=== PATIENT | male | born 1995 | race Caucasian/White ===

== ENCOUNTER 2017-07-03 18:30 | Inpatient (IN) | payer MEDICAID, OTHER ==
[~2017-07-03] VITALS: Ht 167.6 cm; Wt 91.3 kg
[~2017-07-03 18:30] MED LIST: CLOZ100 PO; CLOZ25TA4 PO; LEVO25TA9 PO; TRAZ-147 PO
[2017-07-03 19:09] LABS: BASOPHILS # (AUTO) 0.02 K/uL (0.00-0.20); BASOPHILS % (AUTO) 0.3 % (0.0-2.0); EOSINOPHILS % (AUTO) 0.05 % (1.0-6.0); HEMATOCRIT 47.7 % (41-53); HEMOGLOBIN 15.9 g/dL (13.5-17.5); LYMPHOCYTES # (AUTO) 1.7 K/uL (1.0-4.8); MEAN CORPUSCULAR HEMOGLOBIN 28.3 pg (26.0-34.0); MEAN CORPUSCULAR HGB CONC 33.3 G/dL (31.0-37.0); MEAN CORPUSCULAR VOLUME 85 fL (80-100); MONOCYTES # (AUTO) 0.5 K/uL (0.1-1.0); MONOCYTES % (AUTO) 6.9 % (2.0-9.0); NEUTROPHILS # (AUTO) 5.2 K/uL (1.8-7.7); NEUTROPHILS % (AUTO) 69.7 % (40.0-70.0); PLATELET COUNT (AUTO) 182 K/uL (150-450); RED BLOOD CELL COUNT(AUTO) 5.62 MIL/uL (4.50-5.90); RED CELL DISTRIBUTION WIDTH 13.1 % (11.5-14.5); WHITE BLOOD COUNT (AUTO) 7.4 K/uL (4.5-11.0)
[2017-07-03] MEDS ORDERED: PERTUSS(ACELL),DIPH,TET VAC/PF 0.5 ML VIAL IM ONE (19:15)
[2017-07-03] MEDS ORDERED: BACITRACIN 0.9 GM PACKET OINTMENT TP ONE (19:15)
[2017-07-03 19:25] LABS: ANION GAP 11 mmol/L (8-16); CALCIUM, TOTAL 9.3 mg/dL (8.8-10.5); CARBON DIOXIDE 26 mmol/L (22-29); CHLORIDE 104 mmol/L (98-107); CREATININE 0.94 mg/dL (0.60-1.30); GLOMERULAR FILTR. RATE CALC > 60 mL/min (>60); POTASSIUM 3.8 mmol/L (3.5-5.1); SODIUM SERUM 141 mmol/L (136-145); UREA NITROGEN, BLOOD 10 mg/dL (7-18)
[2017-07-03 19:31] LABS: ALANINE AMINOTRANSFERASE 37 U/L (12-78); ALBUMIN 4.5 g/dL (3.4-5.0); ASPARTATE AMINOTRANSFERASE 13 U/L (15-37); BILIRUBIN,TOTAL 0.3 mg/dL (0.1-1.0); TOTAL PROTEIN, SERUM 8.3 g/dL (6.4-8.2)
[2017-07-03] MEDS ORDERED: OLANZapine 5 MG RAPDIS TABLET PO PRN (20:00)
[2017-07-03] MEDS ORDERED: ZOLPIDEM TARTRATE 10 MG TABLET PO PRN (20:00)
[2017-07-03] MEDS ORDERED: HALOPERIDOL 5 MG TABLET PO ONE (20:00)
[2017-07-03] MEDS ORDERED: TraZODone HCL 50 MG TABLET PO ONE (20:00)
[2017-07-03] MEDS ORDERED: LORazepam 2 MG TABLET PO PRN (20:00)
[2017-07-03] MEDS ORDERED: LORazepam 2 MG TABLET PO ONE (20:00)
[2017-07-03] MEDS ORDERED: CloNIDine HCL 0.1 MG TABLET PO ONE (21:30)
[2017-07-03 21:36] VITALS: BP 127/105
[2017-07-03] MEDS ORDERED: INFLUENZA VIRUS VACCINE QVS 2017-18 (3YR+)/PF 60 MCG/0.5 ML SYRINGE IM ONE (22:15)
[2017-07-03 22:27] VITALS: BP 128/82
[2017-07-04 01:24] VITALS: BP 100/58
[2017-07-04] MEDS: LEVOTHYROXINE SODIUM 25 MCG TABLET PO SCH (07:00)
[2017-07-04 08:41] VITALS: BP 132/88
[2017-07-04] MEDS ORDERED: HydrOXYzine PAMOATE 50 MG CAPSULE PO PRN (08:45)
[2017-07-04] MEDS ORDERED: ACETAMINOPHEN 325 MG TABLET PO PRN (08:45)
[2017-07-04] MEDS ORDERED: MAGNESIUM HYDROXIDE SUSPENSION 30 ML UDCUP PO PRN (08:45)
[2017-07-04] MEDS ORDERED: LOPERAMIDE HCL 2 MG CAPSULE PO PRN (08:45)
[2017-07-04] MEDS ORDERED: TUBERCULIN, PURIFIED PROTEIN DERIVATIVE 5 TU/0.1 ML SYG ID ONE (08:45)
[2017-07-04] MEDS ORDERED: MAG HYDROX/AL HYDROX/SIMETH ES 30 ML SUSPENSION UDCUP PO PRN (08:45)
[2017-07-04] MEDS ORDERED: GuaiFENesin/D-METHORPHAN [SUGAR-FREE] 200-20MG/10 ML SYRUP UDCUP PO PRN (08:45)
[2017-07-04] MEDS ORDERED: PROMETHAZINE HCL 25 MG TABLET PO PRN (08:45)
[2017-07-04] MEDS: CloNIDine HCL 0.1 MG TABLET PO SCH ×2 (08:55→16:31)
[2017-07-04] MEDS: FOLIC ACID 1 MG TABLET PO SCH (08:55)
[2017-07-04] MEDS: THIAMINE HCL 100 MG TABLET PO SCH ×2 (08:55→16:31)
[2017-07-04] MEDS: MULTIVITAMINS WITH MINERALS, THERAPEUTIC TABLET PO SCH (08:55)
[2017-07-04 09:04] LABS: CHOL/HDL RATIO 5.2 (4.2-7.3)
[2017-07-04] MEDS ORDERED: LORazepam 2 MG TABLET PO PRN (12:00)
[2017-07-04 16:15] VITALS: BP 144/93
[2017-07-04] MEDS ORDERED: CloZAPine 100 MG TABLET PO SCH (21:00)
[2017-07-04] MEDS: TraZODone HCL 100 MG TABLET PO SCH (21:21)
[2017-07-05 00:43] VITALS: BP 121/79
[2017-07-05] MEDS: LEVOTHYROXINE SODIUM 25 MCG TABLET PO SCH (06:36)
[2017-07-05 09:00] VITALS: BP 118/72
[2017-07-05] MEDS: CloNIDine HCL 0.1 MG TABLET PO SCH ×2 (09:01→16:30)
[2017-07-05] MEDS: FOLIC ACID 1 MG TABLET PO SCH (09:01)
[2017-07-05] MEDS: THIAMINE HCL 100 MG TABLET PO SCH ×2 (09:01→16:30)
[2017-07-05] MEDS: FLUoxetine HCL 20 MG CAPSULE PO SCH (09:01)
[2017-07-05] MEDS: MULTIVITAMINS WITH MINERALS, THERAPEUTIC TABLET PO SCH (09:01)
[2017-07-05 16:20] VITALS: BP 119/68
[2017-07-05] MEDS: TraZODone HCL 100 MG TABLET PO SCH (20:07)
[2017-07-05] MEDS: CloZAPine 100 MG TABLET PO SCH (20:07)
[2017-07-06 06:04] VITALS: BP 116/76
[2017-07-06] MEDS: LEVOTHYROXINE SODIUM 25 MCG TABLET PO SCH (06:37)
[2017-07-06 08:48] VITALS: BP 121/73
[2017-07-06] MEDS: FLUoxetine HCL 20 MG CAPSULE PO SCH (08:48)
[2017-07-06] MEDS: MULTIVITAMINS WITH MINERALS, THERAPEUTIC TABLET PO SCH (08:48)
[2017-07-06] MEDS: FOLIC ACID 1 MG TABLET PO SCH (08:48)
[2017-07-06] MEDS: CloNIDine HCL 0.1 MG TABLET PO SCH ×2 (08:48→16:07)
[2017-07-06] MEDS: THIAMINE HCL 100 MG TABLET PO SCH ×2 (08:48→16:06)
[2017-07-06] MEDS ORDERED: FLUO-191 PO (11:45)
[2017-07-06] MEDS ORDERED: CLOZ100 PO (11:45)
[2017-07-06] MEDS ORDERED: TRAZ-147 PO (11:45)
[2017-07-06 16:39] VITALS: BP 119/83
[2017-07-06] MEDS ORDERED: LORazepam 0.5 MG TABLET PO PRN (19:45)
[2017-07-06] MEDS: TraZODone HCL 100 MG TABLET PO SCH (20:18)
[2017-07-06] MEDS: CloZAPine 100 MG TABLET PO SCH (20:18)
[2017-07-06 20:26] VITALS: BP 123/80
[2017-07-07 00:50] VITALS: BP 118/72
[2017-07-07] MEDS: LEVOTHYROXINE SODIUM 25 MCG TABLET PO SCH (06:21)
[2017-07-07 08:09] LABS: CLOZAPINE 532 ng/mL (350-650); CLOZAPINE & NORCLOZAPINE 818 ng/mL; NORCLOZAPINE 286 ng/mL (Not Estab.)
[2017-07-07] MEDS: THIAMINE HCL 100 MG TABLET PO SCH (08:34)
[2017-07-07] MEDS: CloNIDine HCL 0.1 MG TABLET PO SCH (08:34)
[2017-07-07] MEDS: FLUoxetine HCL 20 MG CAPSULE PO SCH (08:34)
[2017-07-07] MEDS: FOLIC ACID 1 MG TABLET PO SCH (08:35)
[2017-07-07] MEDS: MULTIVITAMINS WITH MINERALS, THERAPEUTIC TABLET PO SCH (08:35)
[2017-07-07 08:47] VITALS: BP 106/79
[2017-07-07] MEDS ORDERED: CLON.2 PO (14:01)
[2017-07-07] MEDS ORDERED: FLUO-191 PO (14:03)
[2017-07-07] MEDS ORDERED: CLOZ100 PO (14:03)
[2017-07-07 16:00] VITALS: BP 123/74
== END 2017-07-07 17:42 | disposition home or self-care (01) | DRG 750 ==
LOC: EMS 18:32 → B2S 20:11
PROVIDERS: ADMIT Psychiatry & Neurology Psychiatry; ATTEND Psychiatry & Neurology Psychiatry
PROC: 3E0234Z Introduction of Serum, Toxoid and Vaccine into Muscle, Percutaneous Approach (ICD-10-PCS; principal; 2017-07-04)
DX: F25.0 Schizoaffective disorder, bipolar type (principal); Z91.19 Patient's noncompliance with other medical treatment and regimen; E03.9 Hypothyroidism, unspecified; E78.5 Hyperlipidemia, unspecified; Z23 Encounter for immunization; Z63.9 Problem related to primary support group, unspecified; Z65.3 Problems related to other legal circumstances; R03.0 Elevated blood-pressure reading, without diagnosis of hypertension
CPT/HCPCS: 80159; 84439; 84443; 84481; 90471; 90715; 99285; G0480